=== PATIENT | female | born 1995 | race Caucasian/White ===

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

== ENCOUNTER 2017-10-19 08:21 | Day surgery (SDC) | payer BC ==
[~2017-10-19 08:21] MED LIST: Buffered Lidocaine 0.9% SYRIN* 5 ML/SYR SYRINGE INTRADERM ONE
[2017-10-19] MEDS ORDERED: Buffered Lidocaine 0.9% SYRIN* 5 ML/SYR SYRINGE ONE (09:04)
[2017-10-19] MEDS ORDERED: Midazolam* 1 MG/ML 2 ML VIAL (2 MG) ONE (10:13)
[2017-10-19] MEDS ORDERED: fentaNYL* 50 MCG/ML 2 ML VIAL (100 MCG VIAL) ONE (10:13)
[2017-10-19] MEDS ORDERED: Naloxone* 0.4 MG/ML 1 ML VIAL IV PRN (10:34)
[2017-10-19] MEDS ORDERED: Bupivacaine 0.25% SDV* 30 ML ONE (10:56)
[2017-10-19] MEDS ORDERED: Propofol* 10 MG/ML 20 ML BTL IV PUSH ONE (11:10)
[2017-10-19 12:18] VITALS: BP 105/67
--- NOTE | 2017-10-19 15:33 | OP ---
OPERATIVE REPORT: DATE OF OPERATION: 10/19/17 - [facility] DATE OF : [birth year] SURGEON: Gautam Morales MD. PHOTO MANAGER: THALIA Mcneal. ANESTHESIOLOGIST: Dr. De Leon. ANESTHESIA: Local MAC. 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 OPERATIVE PROCEDURE: Excision of right index finger dorsal mass. INDICATIONS: Laura is 22 years old. She has a right index finger dorsal mass that enlarges. Once the finger is in a dependent position, it hurts more when she uses the hand; it is relieved by rest. It has a purplish consistency to it. I told it is likely a hemangioma or an arteriovenous malformation. She understands there is a high recurrence rate she wants to have it excised. ESTIMATED BLOOD LOSS: 2 mL. COMPLICATIONS: None. FINDINGS: As expected. DESCRIPTION OF PROCEDURE: Laura was seen in the preoperative holding area. When we met in the operating room, we had a time out and I anesthetized the finger with a digital block with 0.25% plain Marcaine. The arm was then prepped and draped in the usual fashion. A time out was performed. We gravity exsanguinated the finger and the forearm tourniquet was inflated to 250 mmHg. I made a curvilinear incision over the mass. Dissection was carried down and a marginal excision of the mass was performed, it was a purplish mass. It was excised in its entirety. I went ahead and took the surrounding dorsal veins that were adjacent to the mass. I tied them off with a 4-0 silk tie and the mass was fully excised and handed off as a specimen. Once this was completely excised, I irrigated out the wound. The skin was closed with 4-0 nylon suture. Wound was dressed with Xeroform, 1-inch Jennifer, and a Coban dressing. She was taken to the recovery room in stable condition. [id number]/[id number] #: [id number] [facility]
== END 2017-10-19 12:18 | disposition home or self-care (01) ==
LOC: OREAST 08:21
PROVIDERS: ATTEND Orthopaedic Surgery Hand Surgery
DX: D18.09 Hemangioma of other sites (principal); Z87.440 Personal history of urinary (tract) infections
CPT/HCPCS: 81025; 88305; J2250; J2704; J3010